=== PATIENT | male | born 1990 | race Caucasian/White ===

== ENCOUNTER 2017-02-09 18:06 | Emergency (ER) | payer MEDICAID ==
[~2017-02-09] VITALS: Ht 182.9 cm; Wt 54.4 kg
[~2017-02-09 18:06] MED LIST: GABA600T PO; KLO2 PO
[2017-02-09 18:21] VITALS: BP_SYST 118
--- NOTE | 2017-02-09 18:22 | NUR ---
Patient to ER bed 07 to gown for evaluation. Side rails up.
--- NOTE | 2017-02-09 18:24 | NUR ---
Mallory Anaya [employer] at bedside examining patient
--- NOTE | 2017-02-09 18:24 | NUR ---
Pt brought by self, Ambulatory, pt present to ER requesting Rx refill for gabapentin, Ibuprofen, Prevacid and Klonopin, VS WNL.
[2017-02-09 18:28] VITALS: BP_SYST 118
--- NOTE | 2017-02-09 18:32 | NUR ---
Patient given written and verbal discharge instructions and verbalizes understanding. ER MD discussed with patient the results and treatment provided. Patient in stable condition. ID arm band removed. Rx of Ativan, Ibuprofen, Prevacid, Gabapentin given. Patient educated on pain management and to follow up with PMD. Pain Scale 2/10 tootache . Opportunity for questions provided and answered.
== END 2017-02-09 18:28 | disposition home or self-care (01) ==
LOC: SED 18:06
DX: Z76.0 Encounter for issue of repeat prescription (principal); Z88.0 Allergy status to penicillin
CPT/HCPCS: 99283

== ENCOUNTER 2017-02-21 15:19 | Emergency (ER) | payer MEDICAID ==
[~2017-02-21] VITALS: Ht 182.9 cm; Wt 79.4 kg
[2017-02-21 15:33] VITALS: BP_SYST 120
[2017-02-21 16:33] VITALS: BP_SYST 118
== END 2017-02-21 16:33 | disposition home or self-care (01) ==
LOC: SED 15:19
DX: Z76.0 Encounter for issue of repeat prescription (principal); F43.10 Post-traumatic stress disorder, unspecified; Z88.0 Allergy status to penicillin
CPT/HCPCS: 99283

== ENCOUNTER 2017-10-14 16:26 | Emergency (ER) | payer MEDICAID ==
[~2017-10-14] VITALS: Ht 182.9 cm; Wt 81.6 kg
[2017-10-14 16:34] VITALS: BP_SYST 150
[2017-10-14 17:17] VITALS: BP_SYST 146
== END 2017-10-14 17:13 | disposition home or self-care (01) ==
LOC: SED 16:26
DX: Z76.0 Encounter for issue of repeat prescription (principal); F43.10 Post-traumatic stress disorder, unspecified; Z88.0 Allergy status to penicillin
CPT/HCPCS: 99283

== ENCOUNTER 2018-07-31 11:28 | Emergency (ER) | payer MEDICAID ==
[~2018-07-31] VITALS: Ht 182.9 cm; Wt 74.8 kg
[2018-07-31 11:36] VITALS: BP_SYST 139
[2018-07-31] MEDS ORDERED: KETOROLAC TROMETHAMINE 30 MG VIAL IM ONE (12:00)
[2018-07-31 12:15] VITALS: BP_SYST 139
== END 2018-07-31 12:13 | disposition home or self-care (01) ==
LOC: SED 11:28
DX: G89.29 Other chronic pain (principal); M79.672 Pain in left foot; F43.10 Post-traumatic stress disorder, unspecified; Z88.0 Allergy status to penicillin; Z79.899 Other long term (current) drug therapy
CPT/HCPCS: 73620; 96372; 99283; J1885

== ENCOUNTER → 2019-07-30 | Emergency (ER) | payer MEDICAID ==
[~2019-07-30] VITALS: Ht 180.3 cm; Wt 79.4 kg
[2019-07-30 12:23] VITALS: BP_SYST 131
[2019-07-30 13:26] VITALS: BP_SYST 131
== END | disposition still patient (30) ==
LOC: SED 12:03
DX: F41.9 Anxiety disorder, unspecified (principal); Z76.0 Encounter for issue of repeat prescription; Z88.0 Allergy status to penicillin
CPT/HCPCS: 99283

== ENCOUNTER 2020-01-19 11:56 | Emergency (ER) | payer MEDICAID ==
[~2020-01-19] VITALS: Ht 182.9 cm; Wt 77.1 kg
[2020-01-19 12:05] VITALS: BP_SYST 102
[2020-01-19] MEDS ORDERED: traMADol HCL HCL 50 MG TABLET (ULTRAM) PO ONE (12:45)
--- NOTE | 2020-01-19 12:45 | NUR ---
PLACED IN [address], DR ELI AT BEDSIDE
--- NOTE | 2020-01-19 12:57 | NUR ---
Patient given written and verbal discharge instructions and verbalizes understanding. ER MD discussed with patient the results and treatment provided. Patient in stable condition. ID arm band removed. Rx of NONE given. Patient educated on pain management and to follow up with PMD. Pain Scale 3/10 Opportunity for questions provided and answered. Medication side effect fact sheet provided.
[2020-01-19 13:00] VITALS: BP_SYST 112
== END 2020-01-19 12:57 | disposition still patient (30) ==
LOC: SED 11:56
DX: M54.2 Cervicalgia (principal)
CPT/HCPCS: 99283

== ENCOUNTER 2020-05-17 15:16 | Emergency (ER) | payer MEDICAID ==
[~2020-05-17] VITALS: Ht 182.9 cm; Wt 77.1 kg
[2020-05-17 15:20] VITALS: BP_SYST 117
[2020-05-17 17:05] VITALS: BP_SYST 117
== END 2020-05-17 17:05 | disposition home or self-care (01) ==
LOC: SED 15:16
DX: F41.9 Anxiety disorder, unspecified (principal); Z88.0 Allergy status to penicillin
CPT/HCPCS: 99281